=== PATIENT | male | born 2000 | race Caucasian/White ===

== ENCOUNTER 2018-08-03 13:24 | Emergency (ER) | payer OTHER ==
[2018-08-03 14:24] LABS: BASOPHILS # (AUTO) 0.1 10^3/uL (0.0-0.1); BASOPHILS % (AUTO) 0.9 %; EOSINOPHILS # (AUTO) 0.5 10^3/uL (0.0-0.7); EOSINOPHILS % (AUTO) 5.9 %; HGB - HEMOGLOBIN 15.5 g/dL (14.0-18.0); MEAN CORPUSCULAR HEMOGLOBIN 28.5 pg (27.0-31.0); MEAN CORPUSCULAR HGB CONC 34.1 g/dL (32.0-36.0); MEAN CORPUSCULAR VOLUME 83.8 fL (80.0-94.0); MEAN PLATELET VOLUME 7.2 fL (7.4-11.4); MONOCYTES # (AUTO) 0.7 10^3/uL (0.0-1.0); MONOCYTES % (AUTO) 9.3 %; NEUTROPHILS # (AUTO) 2.5 10^3/uL (1.5-6.6); NEUTROPHILS % (AUTO) 31.9 %; PLT - PLATELET COUNT 192 10^3/uL (130-450); RED BLOOD COUNT 5.44 10^6/uL (4.70-6.10); RED CELL DISTRIBUTION WIDTH 13.9 % (12.0-15.0); WHITE BLOOD COUNT 7.7 x10^3/uL (4.8-10.8)
[2018-08-03 14:39] LABS: ACETAMINOPHEN < 10 ug/mL (10-30); ALBUMIN 4.1 g/dL (3.2-5.5); ALKALINE PHOSPHATASE 44 IU/L (42-121); ALT ALANINE AMINOTRANSFERASE 82 IU/L (10-60); AST ASPARTATE AMINOTRANSFERASE 69 IU/L (10-42); BILIRUBIN,TOTAL 0.3 mg/dL (0.2-1.0); BUN - BLOOD UREA NITROGEN 15 mg/dL (6-20); CARBON DIOXIDE - CO2 27 mmol/L (21-32); CHLORIDE 102 mmol/L (101-111); GFR - MDRD 95 (>89); GLUCOSE 99 mg/dL (70-100); LIPASE 37 U/L (22-51); SALICYLATE < 6.0 mg/dL; SODIUM 136 mmol/L (135-145); TOTAL PROTEIN 8.3 g/dL (6.7-8.2)
--- NOTE | 2018-08-03 15:25 | ED Physician Documentation ---
History of Present Illness - Stated complaint Stated Complaint: SI - Chief complaint Chief Complaint: MHE - Additonal information Additional information: hx from pt 18 male to ED with depression suicidal thoughts without plan or attempt in setting of numerous life stressors he has been on zoloft before with good effect he would like to see the same counselor his friend sees he also has had occ wheezing and chest pain over the last month and he vapes and right mid to upper abd pain for 2 weeks as well no fever no travel no lefg no swelling Review of Systems Constitutional: denies: Fever Cardiac: reports: Chest pain / pressure GI: reports: Abdominal Pain. denies: Vomiting, Diarrhea Psychiatric: reports: Depressed, Suicidal. denies: Homicidal, Hallucinations Endocrine: denies: Easy bruising / bleeding Immunocompromised: denies: Immunocompromised PD PAST MEDICAL HISTORY - Past Medical History Past Medical History: Yes Cardiovascular: None Respiratory: Asthma Neuro: None Endocrine/Autoimmune: None GI: None : None HEENT: None Psych: Depression, Anxiety, ADD/ADHD Musculoskeletal: None Derm: None - Past Surgical History Past Surgical History: No - Present Medications Home Medications: Ambulatory Orders Medication Instructions Recorded Confirmed Sertraline [Zoloft] 50 mg PO DAILY #30 tablet 08/03/18 - Allergies Allergies/Adverse Reactions: Allergies Allergy/AdvReac Type Severity Reaction Status Date / Time No Known Drug Allergies Allergy Verified 08/03/18 13:33 - Social History Does the pt smoke?: Yes Smoking Status: Current every day smoker Does the pt drink ETOH?: Yes ETOH Use: Wine, Beer, Liquor Does the pt have substance abuse?: No - Immunizations Immunizations are current?: Yes - POLST Patient has POLST: No PD ED PE NORMAL - Vitals Vital signs reviewed: Yes - Neck Neck: Supple, no meningeal sign - Cardiac Cardiac: RRR - Respiratory Respiratory: No respiratory distress, Clear bilaterally - Abdomen Abdomen: Soft, Other (mild mid to right upper abd TTP, neg murphys, no mcburney pt TTP) - Derm Derm: Normal color - Extremities Extremities: No deformity, No edema, No calf tenderness / cord - Neuro Neuro: Alert and oriented X 3 - Psych Psych: Other (styates suicdal throughts, denies plan, denies homicidal, denies hallucinations) Results - Vitals Vitals: Vital Signs - 24 hr 01/02/19 13:29 Temperature 36.4 C L Heart Rate 82 Respiratory 16 Rate Blood Pressure 143/70 H O2 Saturation 99 Oxygen O2 Source Room air - Labs Labs: Laboratory Tests 08/03/18 08/03/18 08/03/18 14:17 14:17 16:02 WBC 7.7 RBC 5.44 Hgb 15.5 Hct 45.5 MCV 83.8 MCH 28.5 MCHC 34.1 RDW 13.9 Plt Count 192 MPV 7.2 L Neut # (Auto) 2.5 Lymph # (Auto) 4.0 H [place] # (Auto) 0.7 Eos # (Auto) 0.5 Baso # (Auto) 0.1 Absolute Nucleated RBC 0.00 Nucleated RBC % 0.1 Sodium 136 Potassium 3.7 Chloride 102 Carbon Dioxide 27 Anion Gap 7.0 BUN 15 Creatinine 1.0 Estimated GFR (MDRD) 95 Glucose 99 Calcium 9.0 Total Bilirubin 0.3 AST 69 H ALT 82 H Alkaline Phosphatase 44 Total Protein 8.3 H Albumin 4.1 Globulin 4.2 Albumin/Globulin Ratio 1.0 Lipase 37 Urine Color YELLOW Urine Clarity CLEAR Urine pH 6.0 Ur Specific [place] >=1.030 H Urine Protein NEGATIVE Urine Glucose (UA) NEGATIVE Urine Ketones NEGATIVE Urine Occult Blood NEGATIVE Urine Nitrite NEGATIVE Urine Bilirubin NEGATIVE Urine Urobilinogen 0.2 (NORMAL) Ur Leukocyte Esterase NEGATIVE Ur Microscopic Review NOT INDICATED Urine Culture Comments NOT INDICATED Salicylates < 6.0 Urine Opiates Screen POSITIVE H Ur Oxycodone Screen NEGATIVE Urine Methadone Screen NEGATIVE Ur Propoxyphene Screen NEGATIVE Acetaminophen < 10 L Ur Barbiturates Screen NEGATIVE Ur Tricyclics Screen NEGATIVE Ur Phencyclidine Scrn NEGATIVE Ur Amphetamine Screen NEGATIVE U Methamphetamines Scrn NEGATIVE U Benzodiazepines Scrn NEGATIVE Urine Cocaine Screen NEGATIVE U Cannabinoids Screen NEGATIVE Ethyl Alcohol < 5.0 - Rads (name of study) CXR Radiology: See rad report (no acute) RUQ sono Radiology: See rad report (no acute) PD MEDICAL DECISION MAKING - ED course ED course: pt seen by BRAYDEN and they talked for a long time and it was productive and he was introduced to coping mechanisms etc BRAYDEN and I agree he seems safe for dc with outpt counseling SW to call and fup with pt tomorrow I will rx zoloft as that has worked well for him in the past Departure - Departure Disposition: 01 Home, Self Care Clinical Impression: Suicidal ideation Condition: Good Instructions: ED Depression Prescriptions: Sertraline [Zoloft] 50 mg PO DAILY #30 tablet Comments: The xray of your heart and lungs was fine. The ultrasound of your liver kidney and gallbladder was fine. And all your labs were fine except that some of your liver tests were slightly elevated - of you drink alcohol, please cut back - also avoid tylenol when possible - and then follow up with your PMD for a recheck. Also recommend you stop smoking and vaping The professor of social work feels you are safe to go home. The plan is for your to get counseling as an outpatient. And I have prescribed zoloft since that worked well for you in the past - I prescribed a month and after that your PMD can continue the prescription. Zoloft takes 2-3 weeks to start working so don't be surprised if your don't notice the effect right away. Return if worse in any way Forms: Activity restrictions
--- NOTE | 2018-08-03 15:47 | XRAY Report ---
Reason: chest pain Procedure Date: 08/03/2018 Accession Number: [id number] / [id number] Procedure: XR - Chest 2 View X-Ray CPT Code: 27493 FULL RESULT: EXAM: CHEST RADIOGRAPHY EXAM DATE: 08/03/2018 03:32 PM. CLINICAL HISTORY: Chest pain. COMPARISON: None. TECHNIQUE: 2 views. FINDINGS: Lungs/Pleura: No focal opacities evident. No pleural effusion. No pneumothorax. Normal volumes. Mediastinum: Heart and mediastinal contours are unremarkable. Other: None. IMPRESSION: Normal 2-view chest radiography. [facility]
[2018-08-03 16:42] LABS: MUDS CUTOFF CONCENTRATIONS CUTOFF CONC BELOW:
[2018-08-03 16:47] LABS: BILIRUBIN,URINE NEGATIVE (NEGATIVE); GLUCOSE, URINE (UA) NEGATIVE (NEGATIVE); KETONES,URINE (UA) NEGATIVE (NEGATIVE); LEUKOCYTE ESTERASE, URINE NEGATIVE (NEGATIVE); NITRITE,URINE NEGATIVE (NEGATIVE); OCCULT BLOOD,URINE NEGATIVE (NEGATIVE); PROTEIN,URINE NEGATIVE (NEGATIVE); UROBILINOGEN,URINE 0.2 (NORMAL) E.U./dL (NORMAL)
[2018-08-03 16:50] LABS: CLARITY,URINE CLEAR (CLEAR)
[2018-08-03 16:57] LABS: AMPHETAMINE SCREEN,URINE NEGATIVE (NEGATIVE); BENZODIAZEPINES SCREEN, URINE NEGATIVE (NEGATIVE); COCAINE SCREEN URINE NEGATIVE (NEGATIVE); METHADONE SCREEN, URINE NEGATIVE (NEGATIVE); METHAMPHETAMINES SCREEN, URINE NEGATIVE (NEGATIVE); OPIATE SCREEN, URINE POSITIVE (NEGATIVE); OXYCODONE SCREEN, URINE NEGATIVE (NEGATIVE); PROPOXYPHENE SCREEN, URINE NEGATIVE (NEGATIVE); TRICYCLIC ANTIDEPRESSANT,URINE NEGATIVE (NEGATIVE)
[2018-08-03 17:53] VITALS: BP 130/72
--- NOTE | 2018-08-03 20:04 | Ultrasound Report ---
Reason: ruq pain Procedure Date: 08/03/2018 Accession Number: [id number] / [id number] Procedure: US - Abdomen Limited CPT Code: FULL RESULT: EXAM: ABDOMEN ULTRASOUND LIMITED, RIGHT UPPER QUADRANT. EXAM DATE: 08/03/2018 04:39 PM. CLINICAL HISTORY: 18-year-old male with right upper quadrant pain. COMPARISON: None. TECHNIQUE: Real-time scanning was performed with static images obtained on an emergent basis. FINDINGS: Liver: Normal in size and echotexture. Normal wall contour. No mass or cyst. Normal liver length at 14.6 cm. Main portal vein flow: Hepatopetal. Gallbladder: Mildly contracted secondary to non-NPO status. No stones, wall thickening, or sonographic Carlisle's sign. Biliary System: CBD measures 3.2 mm. No intrahepatic or extrahepatic ductal dilatation. Pancreas: Well visualized and normal in appearance. Right kidney: Normal. No nephrolithiasis or hydronephrosis. Other: No free fluid or lymphadenopathy in the visualized abdomen. IMPRESSION: Mildly contracted gallbladder secondary to non-NPO status. No localized tenderness, wall thickening or gallstones. No dilated bile ducts. Remainder of the visualized abdomen unremarkable, without demonstrated cause for right upper quadrant pain. [facility]
== END 2018-08-03 17:51 | disposition home or self-care (01) ==
LOC: ED 13:24
DX: R45.851 Suicidal ideations (principal); F17.200 Nicotine dependence, unspecified, uncomplicated
CPT/HCPCS: 36415; 71046; 76705; 80053; 80306; 80307; 80320; 80329; 81001; 81003; 83690; 85025; 87086; 99283